=== PATIENT | male | born 1995 | race Caucasian/White ===

== ENCOUNTER 2016-11-22 18:12 | Emergency (ER) | payer SELFPAY ==
[~2016-11-22] VITALS: Ht 180.3 cm; Wt 97.7 kg
[~2016-11-22 18:12] MED LIST: AMOXICILLIN 50500 MG PO; AMOXICILLIN 8751 TAB PO; CIPRO HC OTIC S10 ML OT; FLEXERIL 1010 MG/TAB PO; LORTAB 5/500 501 TAB PO; MAGIC MOUTH PO; MAGIC MOUTHWASH1 M1 PO; NAPROSYN500 MG PO; NO HOME MEDICATIONS; PROVENTIL0.09 MG/A1 IH; VALTREX1 GM PO
[2016-11-22 18:23] VITALS: BP 131/86; TEMP 98.4
[2016-11-22] MEDS ORDERED: LEXAPRO 10MG10 MG PO (18:30)
[2016-11-22 19:37] VITALS: PULSE 66
== END 2016-11-22 19:44 | disposition home or self-care (01) ==
LOC: COL.ER 18:12
DX: S31.21XA Laceration without foreign body of penis, initial encounter (principal); X58.XXXA Exposure to other specified factors, initial encounter

== ENCOUNTER 2017-09-05 15:10 | Emergency (ER) | payer SELFPAY ==
[~2017-09-05] VITALS: Ht 182.9 cm; Wt 118.2 kg
[~2017-09-05 15:10] MED LIST changes: +LEXAPRO 10MG10 MG PO
[2017-09-05 15:19] VITALS: BP 137/89; TEMP 99.1
[2017-09-05 15:56] LABS: INFLUENZA A NEGATIVE; INFLUENZA B NEGATIVE
[2017-09-05 16:17] LABS: BASO # 0.1 (0.0-0.2); BASO % 0.7 % (0.0-2.0); EOS # 0.3 (0.0-0.7); EOS % 3.1 % (0-4.0); GRAN # 5.7 (1.4-6.5); GRAN % 68.5 % (42.2-75.2); HEMATOCRIT 44.7 % (42.0-52.0); HEMOGLOBIN 15.3 g/dl (13.5-18.0); LYMPH # 1.8 (1.2-3.4); LYMPH % 22.1 % (20.0-51.0); MEAN CELL VOLUME 87 fl (80.0-100.0); MEAN CORPUSCULAR HEMOGLOBIN 30 pg (27.0-31.0); MEAN CORPUSCULAR HGB CONC 34 g/dl (33.0-37.0); MEAN PLATELET VOLUME 9.7 fl (7.4-10.4); MONO # 0.4 (0.1-0.6); PLATELET COUNT 246 K/mm3 (130-400); RED BLOOD COUNT 5.14 M/mm3 (4.20-5.60); REDCELL DISTRIBUTION WIDTH-CV 12.3 % (11.5-14.5)
[2017-09-05 16:28] LABS: BILIRUBIN,TOTAL 0.4 mg/dL (0.0-1.0); CALCIUM 9.1 mg/dL (8.4-10.2); CREATININE, serum 0.73 mg/dL (0.66-1.25); POTASSIUM 4.2 mmol/L (3.4-5.0)
[2017-09-05 16:58] LABS: TSH w REFLEX 3.9 uIU/mL (0.465-4.680)
[2017-09-05 17:10] VITALS: PULSE 70
[2017-09-08] MEDS ORDERED: AMOXICILLIN 50500 MG PO (02:01)
== END 2017-09-05 17:11 | disposition home or self-care (01) ==
LOC: COL.ER 15:10
PROVIDERS: Physician Assistant
DX: R53.81 Other malaise (principal); F32.9 Major depressive disorder, single episode, unspecified; F41.9 Anxiety disorder, unspecified; J45.909 Unspecified asthma, uncomplicated; F17.210 Nicotine dependence, cigarettes, uncomplicated; F12.90 Cannabis use, unspecified, uncomplicated; Z86.39 Personal history of other endocrine, nutritional and metabolic disease

== ENCOUNTER 2017-09-06 08:02 | Emergency (ER) | payer SELFPAY ==
[~2017-09-06] VITALS: Ht 182.9 cm; Wt 118.2 kg
[2017-09-06 08:12] VITALS: BP 139/83; TEMP 98.5
[2017-09-06 09:09] VITALS: PULSE 80
[2017-09-08] MEDS ORDERED: AMOXICILLIN 50500 MG PO (02:01)
== END 2017-09-06 09:11 | disposition home or self-care (01) ==
LOC: COL.ER 08:02
DX: J06.9 Acute upper respiratory infection, unspecified (principal); J45.909 Unspecified asthma, uncomplicated; E03.9 Hypothyroidism, unspecified; F12.90 Cannabis use, unspecified, uncomplicated; F17.210 Nicotine dependence, cigarettes, uncomplicated

== ENCOUNTER 2017-12-13 09:49 | Emergency (ER) | payer SELFPAY ==
[~2017-12-13] VITALS: Ht 180.3 cm; Wt 127.3 kg
[2017-12-13 10:18] VITALS: BP 155/72; PULSE 82; TEMP 98.7
== END 2017-12-13 10:30 | disposition home or self-care (01) ==
LOC: COL.ER 09:49
DX: L84 Corns and callosities (principal); M79.671 Pain in right foot

== ENCOUNTER 2017-12-28 07:57 | Emergency (ER) | payer SELFPAY ==
[~2017-12-28] VITALS: Ht 180.3 cm; Wt 131.8 kg
[2017-12-28 08:17] VITALS: TEMP 98.2
[2017-12-28] MEDS ORDERED: FLEXERIL 1010 MG/TAB PO (09:18)
[2017-12-28 10:00] VITALS: BP 107/52; PULSE 68
== END 2017-12-28 10:02 | disposition home or self-care (01) ==
LOC: COL.ER 07:57
DX: M54.6 Pain in thoracic spine (principal); X50.0XXA Overexertion from strenuous movement or load, initial encounter
CPT/HCPCS: J1885

== ENCOUNTER 2018-03-20 10:08 | Emergency (ER) | payer SELFPAY ==
[~2018-03-20] VITALS: Ht 180.3 cm; Wt 113.6 kg
[2018-03-20 10:10] VITALS: BP 133/74; TEMP 99
[2018-03-20 11:08] VITALS: PULSE 98
== END 2018-03-20 11:08 | disposition home or self-care (01) ==
LOC: COL.ER 10:08
DX: J98.01 Acute bronchospasm (principal); B34.9 Viral infection, unspecified; F17.210 Nicotine dependence, cigarettes, uncomplicated; E66.9 Obesity, unspecified; Z68.34 Body mass index [BMI] 34.0-34.9, adult

== ENCOUNTER 2018-03-27 02:03 | Emergency (ER) | payer SELFPAY ==
[~2018-03-27] VITALS: Ht 180.3 cm; Wt 113.6 kg
[2018-03-27 05:14] VITALS: BP 132/96; PULSE 112; TEMP 97.4
[2018-03-27] MEDS ORDERED: PROAIR HFA0.09 MG/AC IH (05:18)
== END 2018-03-27 05:18 | disposition home or self-care (01) ==
LOC: COL.ER 02:03
DX: F41.9 Anxiety disorder, unspecified (principal); R53.83 Other fatigue; E66.9 Obesity, unspecified; F17.210 Nicotine dependence, cigarettes, uncomplicated

== ENCOUNTER 2018-03-29 07:49 | Emergency (ER) | payer SELFPAY ==
[~2018-03-29] VITALS: Ht 180.3 cm; Wt 113.6 kg
[~2018-03-29 07:49] MED LIST changes: +PROAIR HFA0.09 MG/AC IH
[2018-03-29 07:54] VITALS: TEMP 98
[2018-03-29] MEDS ORDERED: PREDNISONE20 MG PO (08:13)
[2018-03-29] MEDS ORDERED: PRIL40 PO (08:13)
[2018-03-29 09:25] VITALS: BP 140/90; PULSE 85
== END 2018-03-29 09:25 | disposition home or self-care (01) ==
LOC: COL.ER 07:49
DX: K21.9 Gastro-esophageal reflux disease without esophagitis (principal); R05 Cough; F17.210 Nicotine dependence, cigarettes, uncomplicated
CPT/HCPCS: J7512

== ENCOUNTER 2018-09-29 14:14 | Emergency (ER) | payer SELFPAY ==
[~2018-09-29] VITALS: Ht 180.3 cm; Wt 136.4 kg
[~2018-09-29 14:14] MED LIST changes: +PREDNISONE20 MG PO; +PRIL40 PO
[2018-09-29 14:20] VITALS: BP 138/98; TEMP 98.5
[2018-09-29] MEDS ORDERED: FLEXERIL 1010 MG/TAB PO (15:10)
[2018-09-29] MEDS ORDERED: LIDODERM 5% PATC1 EA TP (15:10)
[2018-09-29 15:19] VITALS: PULSE 78
== END 2018-09-29 15:22 | disposition home or self-care (01) ==
LOC: COL.ER 14:14
DX: M54.5 Low back pain (principal)

== ENCOUNTER 2020-02-02 02:21 | Emergency (ER) | payer SELFPAY ==
[~2020-02-02] VITALS: Ht 180.3 cm; Wt 109.1 kg
[~2020-02-02 02:21] MED LIST changes: +LIDODERM 5% PATC1 EA TP
[2020-02-02 02:27] VITALS: BP 143/86; TEMP 98.5
[2020-02-02] MEDS ORDERED: VALTREX1 GM PO (02:41)
[2020-02-02] MEDS ORDERED: CELEXA40 MG PO (03:08)
[2020-02-02 03:20] VITALS: PULSE 76
== END 2020-02-02 03:20 | disposition home or self-care (01) ==
LOC: COL.ER 02:21
DX: B00.9 Herpesviral infection, unspecified (principal)
CPT/HCPCS: J0696

== ENCOUNTER 2020-08-26 21:26 | Emergency (ER) | payer SELFPAY ==
[~2020-08-26] VITALS: Ht 180.3 cm; Wt 106.8 kg
[~2020-08-26 21:26] MED LIST changes: +CELEXA40 MG PO
[2020-08-26 21:32] VITALS: TEMP 97.4
[2020-08-26] MEDS ORDERED: FLEXERIL 1010 MG/TAB PO (21:46)
[2020-08-26] MEDS ORDERED: NAPROSYN500 MG PO (21:46)
[2020-08-26 22:20] VITALS: BP 130/60; PULSE 78
== END 2020-08-26 22:20 | disposition home or self-care (01) ==
LOC: COL.ER 21:26
DX: S89.91XA Unspecified injury of right lower leg, initial encounter (principal); X50.1XXA Overexertion from prolonged static or awkward postures, initial encounter

== ENCOUNTER 2021-02-10 06:07 | Observation (INO) | payer SELFPAY ==
[~2021-02-10] VITALS: Ht 180.3 cm; Wt 109.1 kg
[2021-02-10 06:47] LABS: BASO # 0.1 (0.0-0.2); BASO % 0.6 % (0.0-2.0); EOS # 0.2 (0.0-0.7); EOS % 1.5 % (0-4.0); GRAN # 8.6 (1.4-6.5); GRAN % 67.9 % (42.2-75.2); HEMATOCRIT 49.7 % (42.0-52.0); HEMOGLOBIN 17.4 g/dl (13.5-18.0); LYMPH # 2.7 (1.2-3.4); LYMPH % 21.5 % (20.0-51.0); MEAN CELL VOLUME 84 fl (80.0-100.0); MEAN CORPUSCULAR HEMOGLOBIN 29 pg (27.0-31.0); MEAN CORPUSCULAR HGB CONC 35 g/dl (33.0-37.0); MEAN PLATELET VOLUME 10.1 fl (7.4-10.4); MONO % 8.1 % (1.7-9.3); PLATELET COUNT 250 K/mm3 (130-400); RED BLOOD COUNT 5.93 M/mm3 (4.20-5.60); REDCELL DISTRIBUTION WIDTH-CV 12.9 % (11.5-14.5)
[2021-02-10 07:20] LABS: ALANINE AMINOTRANSFERASE 25 U/L (4-49); ALBUMIN 4.4 gm/dL (3.5-5.0); ALKALINE PHOSPHATASE 57 U/L (50-136); ANION GAP 13 mmol/L (7-16); AST,SGOT 31 U/L (15-37); BILIRUBIN,TOTAL 0.9 mg/dL (0.0-1.0); BLOOD UREA NITROGEN 24 mg/dL (9-20); CALCIUM 9.4 mg/dL (8.4-10.2); CARBON DIOXIDE 20 mmol/L (22-30); CHLORIDE 104 mmol/L (98-107); CREATININE, serum 0.83 (0.66-1.25); GLUCOSE 114 mg/dL (74-106); POTASSIUM 3.5 mmol/L (3.4-5.0); SODIUM 137 mmol/L (137-145); TOTAL PROTEIN 7.5 gm/dL (6.4-8.2)
[2021-02-10 07:27] LABS: C-REACTIVE PROTEIN < 0.5 mg/dL (0.0-0.9); CREATINE KINASE 202 U/L (55-170); LIPASE 27 U/L (23-300)
[2021-02-10 07:34] LABS: TROPONIN-I 0.163 ng/mL (0.000-0.035)
[2021-02-10 11:20] VITALS: BP 109/56; PULSE 75; TEMP 98.7
--- NOTE | 2021-02-10 12:00 | NUR ---
Admission assessment completed, alert/oriented, vital signs stable, chest pain is improved but still present, heart RRR/ SR on tele, lungs CTA/ no reps.difficulty, patient reports recent heavy Meth. usuage and not been sleeping, he has no home meds, I have notified Hospitalist of his arrival, patient denies other needs at this time
[2021-02-10 17:00] VITALS: BP 117/62; PULSE 72
[2021-02-10 19:32] VITALS: BP 128/57; PULSE 68; TEMP 97.5
[2021-02-11 00:26] VITALS: BP 120/54; PULSE 63; TEMP 98
[2021-02-11 04:44] VITALS: BP 110/49; PULSE 60; TEMP 98.5
--- NOTE | 2021-02-11 05:38 | NUR ---
PT HAD UNEVENTFUL NIGHT, SLEPT THROUGH OUT ENTIRE NIGHT, DENIES PAIN, SOB, N/V/D. N/S INFUSING AT 100ML/HR. PT EXPRESSES NO ADDITIONAL NEEDS AT THIS TIME. CALL LIGHT WITHIN REACH.
[2021-02-11 06:25] LABS: BASO # 0.1 (0.0-0.2); BASO % 0.8 % (0.0-2.0); EOS # 0.3 (0.0-0.7); EOS % 5.3 % (0-4.0); GRAN % 47.6 % (42.2-75.2); HEMATOCRIT 45.9 % (42.0-52.0); LYMPH # 2.5 (1.2-3.4); LYMPH % 39.1 % (20.0-51.0); MEAN CELL VOLUME 86 fl (80.0-100.0); MEAN CORPUSCULAR HEMOGLOBIN 29 pg (27.0-31.0); MEAN CORPUSCULAR HGB CONC 34 g/dl (33.0-37.0); MEAN PLATELET VOLUME 10.4 fl (7.4-10.4); MONO # 0.4 (0.1-0.6); MONO % 6.9 % (1.7-9.3); PLATELET COUNT 214 K/mm3 (130-400); RED BLOOD COUNT 5.31 M/mm3 (4.20-5.60); REDCELL DISTRIBUTION WIDTH-CV 12.8 % (11.5-14.5)
[2021-02-11 06:35] LABS: HEMOGLOBIN 15.4 g/dl (13.5-18.0)
[2021-02-11 06:41] VITALS: BP 110/49; PULSE 60
[2021-02-11 06:41] LABS: CALCIUM 8.6 mg/dL (8.4-10.2); CREATININE, serum 0.71 (0.66-1.25); MAGNESIUM 1.9 mg/dL (1.6-2.3); POTASSIUM 4.2 mmol/L (3.4-5.0)
[2021-02-11 06:52] LABS: TRICYCLIC ANTIDEPRESS URINE NEGATIVE
[2021-02-11 07:20] LABS: TROPONIN-I 0.075 ng/mL (0.000-0.035)
[2021-02-11 07:31] LABS: TSH w REFLEX 3.35 uIU/mL (0.465-4.680)
--- NOTE | 2021-02-11 08:29 | NUR ---
Patient resting in bed and has no c/o pain, SOB, dizziness. Assessment completed. Patient ate all of his breakfast and is just currently waiting for his echo to be completed.
[2021-02-11 08:40] VITALS: BP 109/46; PULSE 59; TEMP 98.5
[2021-02-11 11:43] VITALS: BP 106/49; PULSE 57; TEMP 98.6
--- NOTE | 2021-02-11 14:45 | NUR ---
SAMY met with the patient to discuss discharge plan. The patient lives in [place] with roommates. He reports independence with ADLs and does not have any DME. 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 The patient does not have a PCP. He is self pay. The patient reports that he is interested in getting set up somewhere for primary care. SAMY informed him of [facility], [facility] in [place], and [facility] in and how [facility] in [place] takes a long time to get in. SAMY informed him that he would get in faster at [facility] in [place]. The patient verbalized understanding and states that he would still prefer to just get set up at [facility] in [place]. SAMY contacted [facility] in [place] and secured the patient an appointment there on 04/17 at 0900. That was the soonest appointment for new patients that was available. SAMY informed the equal opportunity specialist of the appointment. The patient [facility]. He reports no difficulties obtaining his meds. He states that he does utilize [facility] and has their presciption card. The patient was interested in getting a new [facility] card. SAMY provided a new [facility] card to the patient. The patient does not have a DPOA-HC, but he was interested in obtaining a form. [facility] provided. The patient states that he is not , has no children, and that his parents are still alive: Brennon (ph#[phone]) and Amina Oakley. SAMY informed him that his parents are his next of kin. The patient verbalized understanding. The patient plans to return home with his roommates upon discharge. SAMY addressed the patient's meth use. The patient reports that he last used two days ago. SAMY discussed inpatient and outpatient treatment. The patient reports that he is not interested in any treatment at this time. The patient was interested in a list of drug/alcohol treatment options around the [place] area, in the event his use got bad. SAMY provided him with a list of outpatient treatment options around the [place] area. *Discharge plan: home with roommates. The patient's records and d/c orders will need to be faxed the [facility] in [facility]*
[2021-02-11] MEDS ORDERED: ASPIRIN E.C. 8181 MG PO (14:52)
--- NOTE | 2021-02-11 16:26 | NUR ---
This nurse reviewed discharge instructions with the patient. The patient verbalized understanding of all topics taught (aspirin, chest pain, discarding medications, and drug use cessation). Patient finished his lunch; telemetry and IV were removed. Patient was escorted out of the building through the ER by this nurse as 1620.
== END 2021-02-11 16:28 | disposition home or self-care (01) ==
LOC: COL.ER 06:07 → MEDICAL 07:48
PROVIDERS: Emergency Medicine; ADMIT Internal Medicine
DX: I21.A1 Myocardial infarction type 2 (principal); F19.10 Other psychoactive substance abuse, uncomplicated; N50.89 Other specified disorders of the male genital organs; E03.9 Hypothyroidism, unspecified; F17.210 Nicotine dependence, cigarettes, uncomplicated; Z83.3 Family history of diabetes mellitus
CPT/HCPCS: A9500; G0378; J1650; J1885; J2405; J7030